=== PATIENT | male | born 1945 | race Caucasian/White ===

== ENCOUNTER 2016-12-05 10:46 | Inpatient (IN) | payer MEDICARE, BC ==
[2016-12-05] MEDS ORDERED: Sodium Chloride 0.9% 10 ML Syringe FLUSH PRN (11:28)
[2016-12-05] MEDS ORDERED: Lactated Ringers 1,000 ML IV SCH (11:30)
[2016-12-05] MEDS ORDERED: cefTRIAXone 1 GM in Sodium Chloride 0.9% 50 ML IV SCH (11:30)
[2016-12-05] MEDS ORDERED: Ibuprofen 600 MG Tab PO ONE (11:30)
[2016-12-05] MEDS ORDERED: Azithromycin 500 MG in Sodium Chloride 0.9% 250 ML IV SCH (11:30)
--- NOTE | 2016-12-05 11:32 | EDM.PDOC ---
ED HPI GENERAL MEDICAL PROBLEM - General Chief Complaint: Respiratory Problem Stated Complaint: FROM CLINIC Time Seen by Provider: 12/05/16 11:21 Source of Information: Reports: Patient, Family, RN Notes Reviewed History Limitations: Reports: No Limitations - History of Present Illness INITIAL COMMENTS - FREE TEXT/NARRATIVE: 71-year-old gentleman presents emergency department day with complaint of shortness of breath and fever, he states he's been ill for about a week is progressively getting worse she now has chills he has had some difficulty as he recently underwent TURP procedure with complication of bladder perforation had completed a course of Bactrim about 2 weeks prior for suspected urinary tract infection lEFT LUNG Pain Score (Numeric/FACES): 2 - Related Data Allergies Allergy/AdvReac Type Severity Reaction Status Date / Time codeine Allergy Abdominal Verified 12/05/16 11:01 Pain Iodinated Contrast- Oral and Allergy Hypotension Verified 12/05/16 11:01 IV Dye morphine Allergy Abdominal Verified 12/05/16 11:01 Pain Home Meds: Home Meds Albuterol Sulfate [Ventolin Hfa] 2 puff IH ASDIRECTED PRN 12/05/16 [History] Hydrocortisone [Cortef] 10 mg PO DAILY 12/05/16 [History] Past Medical History Cardiovascular History: Reports: Heart Failure Respiratory History: Reports: COPD, Pneumonia, Recurrent, Other (See Below) Other Respiratory History: PRN oxygen Gastrointestinal History: Reports: Cholelithiasis, GERD, GI Bleed Genitourinary History: Reports: BPH Musculoskeletal History: Reports: Back Pain, Chronic, Fracture, Other (See Below ) Other Musculoskeletal History: L-5 herniated disc - Infectious Disease History Infectious Disease History: Reports: CGR-[id number]-Dxwwulmra Enterobacteriaceae , Mumps - Past Surgical History HEENT Surgical History: Reports: Eye Surgery, LASIK GI Surgical History: Reports: Appendectomy, Cholecystectomy, Hernia, Inguinal, Other (See Below) Other GI Surgeries/Procedures: patial stomach removal due to gi bleed Male Surgical History: Reports: TURP-Transurethral Resection of Prostate 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 Musculoskeletal Surgical History: Reports: Other (See Below) Other Musculoskeletal Surgeries/Procedures:: Left arm surgery for nerve damage prakash 5 Social & Family History - Tobacco Use Smoking Status *Q: Former Smoker Used Tobacco, but Quit: Yes Month Tobacco Last Used: 8.5 years ago Second Hand Smoke Exposure: No - Caffeine Use Caffeine Use: Reports: Coffee - Alcohol Use Days Per Week of Alcohol Use: 0 - Recreational Drug Use Recreational Drug Use: No ED ROS GENERAL - Review of Systems Review Of Systems: See Below Constitutional: Reports: Fever, Chills HEENT: Reports: No Symptoms Respiratory: Reports: Shortness of Breath, Cough, Sputum Cardiovascular: Reports: Dyspnea on Exertion GI/Abdominal: Reports: No Symptoms : Reports: No Symptoms Musculoskeletal: Reports: No Symptoms Skin: Reports: No Symptoms Neurological: Reports: No Symptoms ED EXAM, GENERAL - Physical Exam Exam: See Below Free Text/Narrative:: General: Male, mild discomfort secondary to chills, alert and oriented x3 HEENT: head is atraumatic normocephalic, eyes pupils equal round reactive to light, sclera clear no conjunctivitis appreciated. Ears tympanic membranes clear and hutson landmarks and light reflex are present bilaterally canals are clear. Nose no septal deviation, nares are clear, no blood present. Mouth mucosa is dry and pink no erythema or exudate noted in soft palate, tongue is midline uvula is midline, dentition is intact. Neck: Supple no thyromegaly no tracheal deviation. Nodes: Cervical nodes subclavicular nodes nontender no palpable lymphadenopathy noted. Lungs: clear to auscultation bilaterally with symmetrical respirations, no adventitious noise appreciated. CV: Regular rate and rhythm S1 and S2 appreciated no murmurs rubs or gallops noted. Abdomen: Soft, nontender, no palpable masses or organomegaly appreciated, no distention no guarding bowel sounds are present, . Neuro: Cranial nerves II through XII grossly intact Skin: Warm and dry, intact Extremities: No lower extremity edema appreciated, Course - Vital Signs Last Recorded V/S: Last Vital Signs Temp 101.7 F H 12/05/16 12:10 Pulse 93 12/05/16 11:18 Resp 36 H 12/05/16 11:18 BP 130/74 12/05/16 10:53 Pulse Ox 89 L 12/05/16 11:18 - Orders/Labs/Meds Orders: Active Orders 24 hr Category Date Time Status EKG Documentation Completion [RC] ASDIRECTED Care 12/05/16 11:29 Active Peripheral IV Care [RC] . DIRECTED Care 12/05/16 11:29 Active Vital Signs [RC] Q1H Care 12/05/16 11:26 Active CULTURE BLOOD [BC] Urgent Lab 12/05/16 11:43 Received CULTURE BLOOD [BC] Urgent Lab 12/05/16 11:43 Received CULTURE RESPIRATORY + SMEAR [RM] Urgent Lab 12/05/16 11:28 Uncollected INFLUENZA A+B AG SCREEN [RM] Urgent Lab 12/05/16 12:33 Ordered UA W/MICROSCOPIC [URIN] Urgent Lab 12/05/16 11:26 Uncollected Azithromycin [Zithromax] 500 mg Med 12/05/16 11:30 Active Sodium Chloride 0.9% [Normal Saline] 250 ml IV Q24H Lactated Ringers [Ringers, Lactated] 1,000 ml Med 12/05/16 11:30 Active IV ASDIRECTED Sodium Chloride 0.9% [Saline Flush] Med 12/05/16 11:28 Active 10 ml FLUSH ASDIRECTED PRN cefTRIAXone [Rocephin] 1 gm Med 12/05/16 11:30 Active Sodium Chloride 0.9% [Normal Saline] 50 ml IV Q24H Blood Culture x2 Reflex Set [OM.PC] Urgent Oth 12/05/16 11:26 Ordered Peripheral IV Insertion Adult [OM.PC] Urgent Oth 12/05/16 11:28 Ordered EKG 12 Lead [EK] Urgent Ther 12/05/16 11:28 Ordered Medication Orders Azithromycin 500 mg/ Sodium (Chloride) 250 mls @ 250 mls/hr IV Q24H [facility] Last Admin: 12/05/16 12:18 Dose: 250 mls/hr Ceftriaxone Sodium 1 gm/ (Sodium Chloride) 50 mls @ 100 mls/hr IV Q24H [facility] Lactated Ringer's (Ringers, Lactated) 1,000 mls @ 500 mls/hr IV ASDIRECTED ESVIN Last Admin: 12/05/16 12:19 Dose: 500 mls/hr Sodium Chloride (Saline Flush) 10 ml FLUSH ASDIRECTED PRN PRN Reason: Keep Vein Open Labs: Laboratory Tests 12/05/16 12/05/16 12/05/16 Range/Units 11:26 11:43 11:43 WBC 12.3 H (4.5-11.0) K/uL RBC 5.06 (4.30-5.90) M/uL Hgb 11.5 L (12.0-15.0) g/dL Hct 37.9 L (40.0-54.0) % MCV 75 L (80-98) fL MCH 23 L (27-31) pg MCHC 30 L (32-36) % Plt Count 308 (150-400) K/uL Neut % (Auto) 84 H (36-66) % Lymph % (Auto) 7 L (24-44) % Meigs % (Auto) 9 H (2-6) % Eos % (Auto) 0 L (2-4) % Baso % (Auto) 0 (0-1) % Sodium 138 L (140-148) mmol/L Potassium 4.5 (3.6-5.2) mmol/L Chloride 103 (100-108) mmol/L Carbon Dioxide 23 (21-32) mmol/L Anion Gap 16.5 H (5.0-14.0) mmol/L BUN 23 H (7-18) mg/dL Creatinine 1.3 (0.8-1.3) mg/dL Est Cr Clr Drug Dosing 50.61 mL/min Estimated GFR (MDRD) 54 L (>60) Glucose 180 H (74-106) mg/dL Lactic Acid 2.6 H (0.4-2.0) mmol/L Calcium 8.4 L (8.5-10.1) mg/dL Total Bilirubin 0.7 (0.2-1.0) mg/dL AST 18 (15-37) U/L ALT 18 (12-78) U/L Alkaline Phosphatase 75 (46-116) U/L Troponin I (0.000-0.056) ng/mL C-Reactive Protein 5.21 H (0.0-0.3) mg/dL NT-Pro-B Natriuret Pep (5-125) pg/mL Total Protein 6.6 (6.4-8.2) g/dL Albumin 3.1 L (3.4-5.0) g/dL Globulin 3.5 (2.3-3.5) g/dL Albumin/Globulin Ratio 0.9 L (1.2-2.2) 12/05/16 12/05/16 Range/Units 11:43 11:43 WBC (4.5-11.0) K/uL RBC (4.30-5.90) M/uL Hgb (12.0-15.0) g/dL Hct (40.0-54.0) % MCV (80-98) fL MCH (27-31) pg MCHC (32-36) % Plt Count (150-400) K/uL Neut % (Auto) (36-66) % Lymph % (Auto) (24-44) % Meigs % (Auto) (2-6) % Eos % (Auto) (2-4) % Baso % (Auto) (0-1) % Sodium (140-148) mmol/L Potassium (3.6-5.2) mmol/L Chloride (100-108) mmol/L Carbon Dioxide (21-32) mmol/L Anion Gap (5.0-14.0) mmol/L BUN (7-18) mg/dL Creatinine (0.8-1.3) mg/dL Est Cr Clr Drug Dosing mL/min Estimated GFR (MDRD) (>60) Glucose (74-106) mg/dL Lactic Acid (0.4-2.0) mmol/L Calcium (8.5-10.1) mg/dL Total Bilirubin (0.2-1.0) mg/dL AST (15-37) U/L ALT (12-78) U/L Alkaline Phosphatase (46-116) U/L Troponin I < 0.017 (0.000-0.056) ng/mL C-Reactive Protein (0.0-0.3) mg/dL NT-Pro-B Natriuret Pep 133 H (5-125) pg/mL Total Protein (6.4-8.2) g/dL Albumin (3.4-5.0) g/dL Globulin (2.3-3.5) g/dL Albumin/Globulin Ratio (1.2-2.2) Meds: Medications Generic Name Dose Route Start Last Admin Trade Name Freq PRN Reason Stop Dose Admin Azithromycin 500 mg/ Sodium 250 mls @ 250 mls/hr 12/05/16 11:30 12/05/16 12: 18 Chloride IV 250 mls/hr Q24H ESVIN Administration Ceftriaxone Sodium 1 gm/ 50 mls @ 100 mls/hr 12/05/16 11:30 Sodium Chloride IV Q24H ESVIN Lactated Ringer's 1,000 mls @ 500 mls/hr 12/05/16 11:30 12/05/16 12:19 Ringers, Lactated IV 500 mls/hr ASDIRECTED ESVIN Administration Sodium Chloride 10 ml 12/05/16 11:28 Saline Flush FLUSH ASDIRECTED PRN Keep Vein Open Discontinued Medications Generic Name Dose Route Start Last Admin Trade Name Freq PRN Reason Stop Dose Admin Ibuprofen 600 mg 12/05/16 11:30 12/05/16 12:10 Motrin PO 12/05/16 11:31 600 mg ONETIME ONE Administration Departure - Departure Time of Disposition: 12:39 Disposition: Admitted As Inpatient 64 Condition: Good Clinical Impression: Community acquired pneumonia Qualifiers: Laterality: right Lung location: lower lobe of lung Qualified Code(s): J18.1 - Lobar pneumonia, unspecified organism - Discharge Information Referrals: Edy Vicente MD [Primary Care Provider] - Forms: ED Department Discharge - My Orders Last 24 Hours: My Active Orders 12/05/16 11:26 Vital Signs [RC] Q1H UA W/MICROSCOPIC [URIN] Urgent Blood Culture x2 Reflex Set [OM.PC] Urgent 12/05/16 11:28 CULTURE RESPIRATORY + SMEAR [RM] Urgent Sodium Chloride 0.9% [Saline Flush] 10 ml FLUSH ASDIRECTED PRN Peripheral IV Insertion Adult [OM.PC] Urgent EKG 12 Lead [EK] Urgent 12/05/16 11:29 EKG Documentation Completion [RC] ASDIRECTED Peripheral IV Care [RC] . DIRECTED 12/05/16 11:30 Azithromycin [Zithromax] 500 mg Sodium Chloride 0.9% [Normal Saline] 250 ml IV Q24H Lactated Ringers [Ringers, Lactated] 1,000 ml IV ASDIRECTED cefTRIAXone [Rocephin] 1 gm Sodium Chloride 0.9% [Normal Saline] 50 ml IV Q24H 12/05/16 11:43 CULTURE BLOOD [BC] Urgent CULTURE BLOOD [BC] Urgent 12/05/16 12:33 INFLUENZA A+B AG SCREEN [RM] Urgent - Assessment/Plan Last 24 Hours: My Active Orders 12/05/16 11:26 Vital Signs [RC] Q1H UA W/MICROSCOPIC [URIN] Urgent Blood Culture x2 Reflex Set [OM.PC] Urgent 12/05/16 11:28 CULTURE RESPIRATORY + SMEAR [RM] Urgent Sodium Chloride 0.9% [Saline Flush] 10 ml FLUSH ASDIRECTED PRN Peripheral IV Insertion Adult [OM.PC] Urgent EKG 12 Lead [EK] Urgent 12/05/16 11:29 EKG Documentation Completion [RC] ASDIRECTED Peripheral IV Care [RC] . DIRECTED 12/05/16 11:30 Azithromycin [Zithromax] 500 mg Sodium Chloride 0.9% [Normal Saline] 250 ml IV Q24H Lactated Ringers [Ringers, Lactated] 1,000 ml IV ASDIRECTED cefTRIAXone [Rocephin] 1 gm Sodium Chloride 0.9% [Normal Saline] 50 ml IV Q24H 12/05/16 11:43 CULTURE BLOOD [BC] Urgent CULTURE BLOOD [BC] Urgent 12/05/16 12:33 INFLUENZA A+B AG SCREEN [RM] Urgent Plan: Assessment Acuity = acute Site and laterality = community acquired pneumonia right base, [place] patient with known history of COPD and history of congestive heart failure Etiology = probable bacterial cause Manifestations = fever, dyspnea Location of injury = Home Lab values = WBC elevated at 12.3 consistent with leukocytosis, hemoglobin low 11.5 consistent with microchromic anemia lactic acid elevated at 2.6 consistent lactic acidosis CRP elevated at 5.2 BNP normal at 133 chest x-ray shows infiltrate right base EKG demonstrates a sinus rhythm with left axis deviation and left anterior fascicular block Plan Discussed case with hospitalist business operations manager he agreed to come and evaluate the patient in the emergency department for admission, blood cultures are drawn and pending influenza is pending initiation of antibiotics of azithromycin and Rocephin initiated in the emergency department Patient was in agreement with the plan all questions were answered, This note was dictated using [employer] voice recognition software please call with any questions.
--- NOTE | 2016-12-05 11:59 | CR ---
Chest 2V HISTORY: Fever, shortness of breath. COMPARISON: None FINDINGS: Patchy infiltrate right lung base. The mid and upper lung zones are clear. Cardiac size is normal no acute congestive change. Impression: Right lung base infiltrate.
--- NOTE | 2016-12-05 14:18 | PCM.HP ---
H&P History of Present Illness - General Date of Service: 12/05/16 Admit Problem/Dx: Admission Diagnosis/Problem Admission Diagnosis/Problem Pneumonia Source of Information: Patient, Family, Provider History Limitations: Reports: No Limitations - History of Present Illness Initial Comments - Free Text/Narative: Manas presented to the emergency room with cough and shortness of breath. He has had a cough for approximately one week but it has been worse the past couple of days. Last night he developed a fever greater than 101 at home and had increasing shortness of breath. He checked his pulse and oxygen this morning and his pulse was greater than 100 and his oxygen was only 84%. He did use his supplemental oxygen last night but had not required prior to that time. He has no appetite and has no energy. He has some pleuritic sounding pain in the left lower chest. He has nausea vomiting for the past 12 hours or so and has not been able to keep anything down. No obvious sick contacts and no travel. He was treated with antibiotics approximately 2 weeks ago for a suspected urinary tract infection. He does note some dysuria but has not noticed a change in the color or odor of his urine. Does note that he has a JJ stent in place and is due to have it removed. Workup in the emergency room revealed borderline hypoxia as well as a significant fever. Chest x-ray suggested right lower lobe pneumonia. Urine sample also possibly suggestive of infection. He has received antibiotics and some IV fluids and will be admitted for further management. lEFT LUNG Pain Score (Numeric/FACES): 2 - Related Data Allergies/Adverse Reactions: Allergies Allergy/AdvReac Type Severity Reaction Status Date / Time Iodinated Contrast- Oral and Allergy Hypotension Verified 12/05/16 11:01 IV Dye codeine AdvReac Abdominal Verified 12/05/16 15:06 Pain morphine AdvReac Abdominal Verified 12/05/16 15:06 Pain Home Medications: Home Meds Albuterol Sulfate [Ventolin Hfa] 2 puff IH ASDIRECTED PRN 12/05/16 [History] Hydrocortisone [Cortef] 10 mg PO DAILY 12/05/16 [History] Past Medical History Cardiovascular History: Reports: Heart Failure Respiratory History: Reports: COPD, Pneumonia, Recurrent, Other (See Below) Other Respiratory History: PRN oxygen Gastrointestinal History: Reports: Cholelithiasis, GERD, GI Bleed Genitourinary History: Reports: BPH Musculoskeletal History: Reports: Back Pain, Chronic, Fracture, Other (See Below ) Other Musculoskeletal History: L-5 herniated disc - Infectious Disease History Infectious Disease History: Reports: DFH-Opwbcxhohb-Tdtjekani Enterobacteriaceae , Mumps - Past Surgical History HEENT Surgical History: Reports: Eye Surgery, LASIK GI Surgical History: Reports: Appendectomy, Cholecystectomy, Hernia, Inguinal, Other (See Below) Other GI Surgeries/Procedures: patial stomach removal due to gi bleed Male Surgical History: Reports: TURP-Transurethral Resection of Prostate 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 Musculoskeletal Surgical History: Reports: Other (See Below) Other Musculoskeletal Surgeries/Procedures:: Left arm surgery for nerve damage prakash 5 Social & Family History - Family History Cardiac: Denies: CAD - Tobacco Use Smoking Status *Q: Former Smoker Used Tobacco, but Quit: Yes Month Tobacco Last Used: 8.5 years ago Second Hand Smoke Exposure: No - Caffeine Use Caffeine Use: Reports: Coffee - Alcohol Use Days Per Week of Alcohol Use: 0 - Recreational Drug Use Recreational Drug Use: No H&P Review of Systems - Review of Systems: Review Of Systems: See Below Free Text/Narrative: A complete 12 point review of systems was obtained. Pertinent positives and negatives are noted in the history of present illness. All other systems were reviewed and were negative except as noted. Exam - Exam Exam: See Below - Vital Signs Vital Signs: Last Vital Signs Temp 38.4 C H 12/05/16 13:26 Pulse 85 12/05/16 13:26 Resp 32 H 12/05/16 13:26 BP 137/59 L 12/05/16 13:26 Pulse Ox 89 L 12/05/16 13:26 Weight: 86 kg - Exam Quality Assessment: No: Supplemental Oxygen General: Alert, Oriented, Cooperative. No: Mild Distress HEENT: Conjunctiva Clear. No: Mucosa Moist & [place] (dry), Scleral Icterus Neck: Supple, Trachea Midline. No: Lymphadenopathy Lungs: Normal Respiratory Effort, Rales (right lung base). No: Wheezing Cardiovascular: Regular Rate, Regular Rhythm. No: Systolic Murmur GI/Abdominal Exam: Normal Bowel Sounds, Soft, Non-Tender, No Distention Back Exam: Normal Inspection, Full Range of Motion Extremities: No Pedal Edema. No: Increased Warmth Skin: Warm, Dry Neuro Extensive - Mental Status: Alert, Oriented x3, Nl Response to Commands Neuro Extensive - Motor, Sensory, Reflexes: CN II-XII Intact. No: Dysarthria, Abnormal Motor, Tremor Psychiatric: Alert, Normal Affect - Patient Data Lab Results Last 24 hrs: Laboratory Results - last 24 hr 12/05/16 12/05/16 12/05/16 Range/Units 11:26 11:43 11:43 WBC 12.3 H (4.5-11.0) K/uL RBC 5.06 (4.30-5.90) M/uL Hgb 11.5 L (12.0-15.0) g/dL Hct 37.9 L (40.0-54.0) % MCV 75 L (80-98) fL MCH 23 L (27-31) pg MCHC 30 L (32-36) % Plt Count 308 (150-400) K/uL Neut % (Auto) 84 H (36-66) % Lymph % (Auto) 7 L (24-44) % [place]yler % (Auto) 9 H (2-6) % Eos % (Auto) 0 L (2-4) % Baso % (Auto) 0 (0-1) % Sodium 138 L (140-148) mmol/L Potassium 4.5 (3.6-5.2) mmol/L Chloride 103 (100-108) mmol/L Carbon Dioxide 23 (21-32) mmol/L Anion Gap 16.5 H (5.0-14.0) mmol/L BUN 23 H (7-18) mg/dL Creatinine 1.3 (0.8-1.3) mg/dL Est Cr Clr Drug Dosing 50.61 mL/min Estimated GFR (MDRD) 54 L (>60) Glucose 180 H (74-106) mg/dL Lactic Acid 2.6 H (0.4-2.0) mmol/L Calcium 8.4 L (8.5-10.1) mg/dL Total Bilirubin 0.7 (0.2-1.0) mg/dL AST 18 (15-37) U/L ALT 18 (12-78) U/L Alkaline Phosphatase 75 (46-116) U/L Troponin I (0.000-0.056) ng/mL C-Reactive Protein 5.21 H (0.0-0.3) mg/dL NT-Pro-B Natriuret Pep (5-125) pg/mL Total Protein 6.6 (6.4-8.2) g/dL Albumin 3.1 L (3.4-5.0) g/dL Globulin 3.5 (2.3-3.5) g/dL Albumin/Globulin Ratio 0.9 L (1.2-2.2) Urine Color Urine Appearance Urine pH (4.5-8.0) Ur Specific [place] (1.008-1.030) Urine Protein (NEGATIVE) mg/dL Urine Glucose (UA) (NEGATIVE) mg/dL Urine Ketones (NEGATIVE) mg/dL Urine Occult Blood (NEGATIVE) Urine Nitrite (NEGAITVE) Urine Bilirubin (NEGATIVE) Urine Urobilinogen (NORMAL) mg/dL Ur Leukocyte Esterase (NEGATIVE) Urine RBC (0-5) Urine WBC (0-5) Ur Epithelial Cells Amorphous Sediment Urine Bacteria Urine Mucus 12/05/16 12/05/16 12/05/16 Range/Units 11:43 11:43 12:44 WBC (4.5-11.0) K/uL RBC (4.30-5.90) M/uL Hgb (12.0-15.0) g/dL Hct (40.0-54.0) % MCV (80-98) fL MCH (27-31) pg MCHC (32-36) % Plt Count (150-400) K/uL Neut % (Auto) (36-66) % Lymph % (Auto) (24-44) % [place] % (Auto) (2-6) % Eos % (Auto) (2-4) % Baso % (Auto) (0-1) % Sodium (140-148) mmol/L Potassium (3.6-5.2) mmol/L Chloride (100-108) mmol/L Carbon Dioxide (21-32) mmol/L Anion Gap (5.0-14.0) mmol/L BUN (7-18) mg/dL Creatinine (0.8-1.3) mg/dL Est Cr Clr Drug Dosing mL/min Estimated GFR (MDRD) (>60) Glucose (74-106) mg/dL Lactic Acid (0.4-2.0) mmol/L Calcium (8.5-10.1) mg/dL Total Bilirubin (0.2-1.0) mg/dL AST (15-37) U/L ALT (12-78) U/L Alkaline Phosphatase (46-116) U/L Troponin I < 0.017 (0.000-0.056) ng/mL C-Reactive Protein (0.0-0.3) mg/dL NT-Pro-B Natriuret Pep 133 H (5-125) pg/mL Total Protein (6.4-8.2) g/dL Albumin (3.4-5.0) g/dL Globulin (2.3-3.5) g/dL Albumin/Globulin Ratio (1.2-2.2) Urine Color Brown Urine Appearance Turbid Urine pH 5.0 (4.5-8.0) Ur Specific [place] 1.020 (1.008-1.030) Urine Protein 500 H (NEGATIVE) mg/dL Urine Glucose (UA) Normal (NEGATIVE) mg/dL Urine Ketones Negative (NEGATIVE) mg/dL Urine Occult Blood Large (NEGATIVE) Urine Nitrite Negative (NEGAITVE) Urine Bilirubin Small (NEGATIVE) Urine Urobilinogen Normal (NORMAL) mg/dL Ur Leukocyte Esterase Large (NEGATIVE) Urine RBC Packed H (0-5) Urine WBC Packed H (0-5) Ur Epithelial Cells Not seen Amorphous Sediment Not seen Urine Bacteria Many Urine Mucus Not seen Result Diagrams: 12/05/16 11:26 12/05/16 11:43 [place] Results Last 24 hrs: Microbiology 12/05/16 12:33 Influenza Type A Antigen Screen - Final Nasopharyngeal Swab - Nare, Unspecified NEGATIVE INFLUENZA A VIRUS AG Influenza Type B Antigen Screen - Final NEGATIVE INFLUENZA B VIRUS AG Imaging Impressions Last 24 hrs: CXR - images personally reviewed - the heart size is normal. no effusion. Right lower lung infiltrate, patchy. No mass. EKG INTERPRETATION EKG Date: 12/05/16 Rhythm: NSR [place]: Normal P-Wave: Present QRS: Other (LAFB) ST-T: Normal QT: Normal EKG Interpretation Comments: images personally reviewed *Q Meaningful Use (ADM) - VTE *Q VTE Criteria *Q: - VTE Risk Assess *Q Each Risk Factor Represents 1 Point: Congestive Heart Failure, Less than 1 Month , Abnormal Pulmonary Function (COPD) Total Score 1 Point Risk Factors: 2 Each Risk Factor Represents 2 Points: Age 60 - 74 Years Total Score 2 Point Risk Factors: 2 Each Risk Factor Represents 3 Points: None Total Score 3 Point Risk Factors: 0 Each Risk Factor Represents 5 Points: None Total Score 5 Point Risk Factors: 0 Venous Thromboembolism Risk Factor Score *Q: 4 - Stroke *Q Stroke Criteria *Q: - AMI *Q AMI Criteria *Q: - Problem List (1) Community acquired pneumonia SNOMED Code(s): 598045134 ICD Code: J18.9 - PNEUMONIA, UNSPECIFIED ORGANISM Status: Suspected Current Visit: Yes Qualifiers: Laterality: right Lung location: lower lobe of lung Qualified Code(s): J18.1 - Lobar pneumonia, unspecified organism (2) Complicated UTI (urinary tract infection) SNOMED Code(s): 35210468 ICD Code: N39.0 - URINARY TRACT INFECTION, SITE NOT SPECIFIED Status: Acute Current Visit: Yes Problem List Initiated/Reviewed/Updated: Yes Orders Last 24hrs: Active Orders 24 hr Category Date Time Status Patient Status Manage Transfer [TRANSFER] Routine ADT 12/05/16 14:06 Ordered EKG Documentation Completion [RC] ASDIRECTED Care 12/05/16 11:29 Active Peripheral IV Care [RC] . DIRECTED Care 12/05/16 11:29 Active Vital Signs [RC] Q1H Care 12/05/16 11:26 Active CULTURE BLOOD [BC] Urgent Lab 12/05/16 11:43 Received CULTURE BLOOD [BC] Urgent Lab 12/05/16 11:43 Received CULTURE RESPIRATORY + SMEAR [RM] Urgent Lab 12/05/16 11:28 Uncollected CULTURE URINE [RM] Routine Lab 12/05/16 13:54 Received Azithromycin [Zithromax] 500 mg Med 12/05/16 11:30 Active Sodium Chloride 0.9% [Normal Saline] 250 ml IV Q24H Lactated Ringers [Ringers, Lactated] 1,000 ml Med 12/05/16 11:30 Active IV ASDIRECTED Sodium Chloride 0.9% [Saline Flush] Med 12/05/16 11:28 Active 10 ml FLUSH ASDIRECTED PRN cefTRIAXone [Rocephin] 1 gm Med 12/05/16 11:30 Active Sodium Chloride 0.9% [Normal Saline] 50 ml IV Q24H Blood Culture x2 Reflex Set [OM.PC] Urgent Oth 12/05/16 11:26 Ordered Peripheral IV Insertion Adult [OM.PC] Urgent Oth 12/05/16 11:28 Ordered Resuscitation Status Routine Resus Stat 12/05/16 14:08 Ordered EKG 12 Lead [EK] Urgent Ther 12/05/16 11:28 Ordered Medication Orders Azithromycin 500 mg/ Sodium (Chloride) 250 mls @ 250 mls/hr IV Q24H [facility] Last Admin: 12/05/16 12:18 Dose: 250 mls/hr Ceftriaxone Sodium 1 gm/ (Sodium Chloride) 50 mls @ 100 mls/hr IV Q24H [facility] Last Admin: 12/05/16 13:27 Dose: 100 mls/hr Lactated Ringer's (Ringers, Lactated) 1,000 mls @ 500 mls/hr IV ASDIRECTED [facility] Last Admin: 12/05/16 12:19 Dose: 500 mls/hr Sodium Chloride (Saline Flush) 10 ml FLUSH ASDIRECTED PRN PRN Reason: Keep Vein Open Assessment/Plan Comment:: Assessment and Plan - Community acquired pneumonia - borderline hypoxia with right lower lobe infiltrate. Borderline evidence for sepsis but improved with some fluids in the emergency room. With the borderline hypoxia and high fever I think he would benefit from inpatient management. He is very short of breath with any activity. Cultures have been obtained. -Ceftriaxone and azithromycin -Follow-up cultures -Supplement oxygen as needed -Nebulizers Possible complicated urinary tract infection - recent TURP with complications. Some symptoms to suggest infection and urine sample strongly suggestive of infection. Still has JJ stent in place and is due to have this removed. -Antibiotics as above -Follow-up urine culture Maintenance issues - - DVT prophylaxis - mechanical - GI prophylaxis - not indicated - Nutrition - clear liquids, advance as tolerated - Nicole catheter - not indicated CODE STATUS - DNR/DNI Admission justification - This patient will be admitted for inpatient services and is medically appropriate meeting medical necessity for inpatient admission as outlined in my documentation. I reasonably expect the patient will require inpatient services that span a period time over 2 midnights. I reasonably expect this patient to be discharged or transferred within 96 hours [facility]. Disposition - anticipate discharge to home after the hospital stay Primary care physician - Dr Jules Grissom M.D.
[2016-12-05] MEDS ORDERED: Ibuprofen 600 MG Tab PO PRN (15:04)
[2016-12-05] MEDS ORDERED: Polyethylene Glycol 3350 Powder 17 GM Packet PO PRN (15:04)
[2016-12-05] MEDS ORDERED: Ondansetron 4 MG Tab.DIS PO PRN (15:04)
[2016-12-05] MEDS ORDERED: Albuterol 0.083% 2.5 MG/3 ML Neb Soln NEB PRN (15:04)
[2016-12-05] MEDS ORDERED: Benzonatate 100 MG Cap PO PRN (15:04)
[2016-12-05] MEDS ORDERED: Ondansetron 4 MG/2 ML SDV IV PRN (15:04)
[2016-12-05] MEDS: Acetaminophen 325 MG Tab PO PRN ×2 (15:30→23:45)
[2016-12-05] MEDS: Albuterol/Ipratropium 3.0-0.5 MG/3 ML Neb Soln NEB SCH ×2 (16:43→20:40)
[2016-12-05] MEDS: Sodium Chloride 0.9% 1,000 ML IV SCH (23:24)
[2016-12-05] MEDS: diphenhydrAMINE 25 MG Cap PO PRN (23:45)
[2016-12-06] MEDS: Sodium Chloride 0.9% 1,000 ML IV SCH ×2 (07:18→18:03)
[2016-12-06] MEDS: Albuterol/Ipratropium 3.0-0.5 MG/3 ML Neb Soln NEB SCH ×4 (07:30→20:54)
[2016-12-06] MEDS: Hydrocortisone 10 MG Tab PO SCH (08:22)
[2016-12-06] MEDS: cefTRIAXone 2 GM in Sodium Chloride 0.9% 50 ML IV SCH (08:31)
--- NOTE | 2016-12-06 09:16 | PCM.PN ---
- General Info Date of Service: 12/06/16 Functional Status: Reports: Pain Controlled, Tolerating Diet - Review of Systems General: Reports: Weakness Pulmonary: Reports: Shortness of Breath, Cough Systems Review Comment:: No acute events overnight other than some difficulty sleeping. Feels a little better today but still feels weak and fatigued. Moderate cough but not much in the way of sputum production. No significant chest pain at this time. Mild shortness of breath but was able to get up and walk around without oxygen. Intermittently requires supplemental oxygen. Sputum culture pending and Gram stain revealed a gram-positive cocci. He has not had any fevers. Heart rate has normalized. - Patient Data Vitals - Most Recent: Last Vital Signs Temp 36.6 C 12/06/16 07:24 Pulse 67 12/06/16 07:42 Resp 20 12/06/16 07:24 BP 101/53 L 12/06/16 07:24 Pulse Ox 95 12/06/16 07:31 Weight - Most Recent: 86 kg I&O - Last 24 Hours: Intake & Output 12/05/16 12/06/16 12/06/16 22:59 06:59 14:59 Intake Total 1086 700 Output Total 500 300 625 Balance 586 -300 75 Lab Results Last 24 Hours: Laboratory Results - last 24 hr 12/06/16 12/06/16 Range/Units 05:25 05:25 WBC 11.3 H (4.5-11.0) K/uL RBC 4.02 L (4.30-5.90) M/uL Hgb 9.2 L D (12.0-15.0) g/dL Hct 30.4 L (40.0-54.0) % MCV 76 L (80-98) fL MCH 23 L (27-31) pg MCHC 30 L (32-36) % Plt Count 256 (150-400) K/uL Sodium 141 (140-148) mmol/L Potassium 4.2 (3.6-5.2) mmol/L Chloride 109 H (100-108) mmol/L Carbon Dioxide 23 (21-32) mmol/L Anion Gap 13.2 (5.0-14.0) mmol/L BUN 16 (7-18) mg/dL Creatinine 1.1 (0.8-1.3) mg/dL Est Cr Clr Drug Dosing 59.81 mL/min Estimated GFR (MDRD) > 60 (>60) Glucose 111 H (74-106) mg/dL Calcium 7.6 L (8.5-10.1) mg/dL [place] Results Last 24 Hours: Microbiology 12/05/16 14:21 Gram Stain - Final Sputum - Expectorated Respiratory Culture - Preliminary Med Orders - Current: Current Medications Acetaminophen (Tylenol) 650 mg PO Q4H PRN PRN Reason: Pain (Mild 1-3)/fever Last Admin: 12/05/16 23:45 Dose: 650 mg Albuterol (Proventil Neb Soln) 2.5 mg NEB Q4H PRN PRN Reason: Shortness Of Breath/wheezing Albuterol/Ipratropium (Duoneb 3.0-0.5 Mg/3 Ml) 3 ml NEB QIDRT [facility] Last Admin: 12/06/16 07:30 Dose: 3 ml Benzonatate (Tessalon Perles) 100 mg PO TID PRN PRN Reason: Cough Diphenhydramine HCl (Benadryl) 25 mg PO BEDTIME PRN PRN Reason: Insomnia Last Admin: 12/05/16 23:45 Dose: 25 mg Guaifenesin/Dextromethorphan (Robitussin Dm) 10 ml PO Q4H PRN PRN Reason: Cough Hydrocortisone (Cortef) 10 mg PO DAILY [facility] Last Admin: 12/06/16 08:22 Dose: 10 mg Ceftriaxone Sodium 2 gm/ (Sodium Chloride) 50 mls @ 100 mls/hr IV Q24H [facility] Last Admin: 12/06/16 08:31 Dose: 100 mls/hr Azithromycin 500 mg/ Sodium (Chloride) 250 mls @ 250 mls/hr IV Q24H [facility] Ibuprofen (Motrin) 600 mg PO Q6H PRN PRN Reason: Pain/Fever Ondansetron HCl (Zofran Odt) 4 mg PO Q6H PRN PRN Reason: Nausea able to take PO Ondansetron HCl (Zofran) 4 mg IV Q6H PRN PRN Reason: Nausea/Vomiting Polyethylene Glycol (Miralax) 17 gm PO DAILY PRN PRN Reason: Constipation Senna/Docusate Sodium (Senna Plus) 1 tab PO BID PRN PRN Reason: Constipation Sodium Chloride (Saline Flush) 10 ml FLUSH ASDIRECTED PRN PRN Reason: Keep Vein Open Discontinued Medications Azithromycin 500 mg/ Sodium (Chloride) 250 mls @ 250 mls/hr IV Q24H [facility] Last Admin: 12/05/16 12:18 Dose: 250 mls/hr Ceftriaxone Sodium 1 gm/ (Sodium Chloride) 50 mls @ 100 mls/hr IV Q24H [facility] Last Admin: 12/05/16 13:27 Dose: 100 mls/hr Lactated Ringer's (Ringers, Lactated) 1,000 mls @ 500 mls/hr IV ASDIRECTED [facility] Last Admin: 12/05/16 12:19 Dose: 500 mls/hr Sodium Chloride (Normal Saline) 1,000 mls @ 125 mls/hr IV ASDIRECTED [facility] Last Admin: 12/06/16 07:18 Dose: 125 mls/hr Ibuprofen (Motrin) 600 mg PO ONETIME ONE Stop: 12/05/16 11:31 Last Admin: 12/05/16 12:10 Dose: 600 mg - Exam Quality Assessment: Supplemental Oxygen General: Alert, Oriented, Cooperative, No Acute Distress Neck: Supple Lungs: Normal Respiratory Effort, Rales (right lung base). No: Wheezing Cardiovascular: Regular Rate, Regular Rhythm GI/Abdominal Exam: Normal Bowel Sounds, Soft, No Distention Extremities: No Pedal Edema. No: Increased Warmth Skin: Warm, Dry Psy/Mental Status: Alert, Normal Affect - Problem List & Annotations (1) Community acquired pneumonia SNOMED Code(s): 982982606 Code(s): J18.9 - PNEUMONIA, UNSPECIFIED ORGANISM Status: Suspected Current Visit: Yes Qualifiers: Laterality: right Lung location: lower lobe of lung Qualified Code(s): J18.1 - Lobar pneumonia, unspecified organism (2) Complicated UTI (urinary tract infection) SNOMED Code(s): 70527593 Code(s): N39.0 - URINARY TRACT INFECTION, SITE NOT SPECIFIED Status: Acute Current Visit: Yes - Problem List Review Problem List Initiated/Reviewed/Updated: Yes - My Orders Last 24 Hours: My Active Orders 12/05/16 14:08 Resuscitation Status Routine 12/05/16 15:04 Patient Status [ADT] Routine Intake and Output [RC] QSHIFT Notify Provider Vital Signs [RC] ASDIRECTED Oxygen Therapy [RC] PRN RT Aerosol Therapy [RC] ASDIRECTED Up ad Vivian [RC] ASDIRECTED VTE/DVT Education [RC] Per Unit Routine Vital Signs [RC] Q4H Acetaminophen [Tylenol] 650 mg PO Q4H PRN Albuterol [Proventil Neb Soln] 2.5 mg NEB Q4H PRN Benzonatate [Tessalon Perles] 100 mg PO TID PRN Dextromethorphan/guaiFENesin [Robitussin DM] 10 ml PO Q4H PRN Docusate Sodium/Sennosides [Senna Plus] 1 tab PO BID PRN Ibuprofen [Motrin] 600 mg PO Q6H PRN Ondansetron [Zofran ODT] 4 mg PO Q6H PRN Ondansetron [Zofran] 4 mg IV Q6H PRN Polyethylene Glycol 3350 [MiraLAX] 17 gm PO DAILY PRN Sodium Chloride 0.9% [Normal Saline] 1,000 ml IV ASDIRECTED RT Acapella [RESPCARE] Routine Sequential Compression Device [OM.PC] Per Unit Routine 12/05/16 16:00 Albuterol/Ipratropium [DuoNeb 3.0-0.5 MG/3 ML] 3 ml NEB QIDRT 12/05/16 23:29 diphenhydrAMINE [Benadryl] 25 mg PO BEDTIME PRN 12/06/16 09:00 cefTRIAXone [Rocephin] 2 gm Sodium Chloride 0.9% [Normal Saline] 50 ml IV Q24H 12/06/16 09:30 Sodium Chloride 0.9% [Normal Saline] 1,000 ml IV ASDIRECTED 12/06/16 Lunch Regular Diet [DIET] 12/07/16 05:00 BASIC METABOLIC PANEL,BMP [CHEM] Timed CBC W/O DIFF,HEMOGRAM [HEME] Timed (1) - Plan Plan:: Assessment and Plan - Community acquired pneumonia - borderline hypoxia with right lower lobe infiltrate. Clinically he looks a little better but does continue to intermittently require supplemental oxygen. Sputum Gram stain showed a gram- positive cocci but clinically is doing well with current antibiotics. -Ceftriaxone and azithromycin -Follow-up cultures -Supplement oxygen as needed -Nebulizers Possible complicated urinary tract infection - recent TURP with complications. Some symptoms to suggest infection and urine sample strongly suggestive of infection. Still has JJ stent in place and is due to have this removed. Urine culture still pending. -Antibiotics as above -Follow-up urine culture Maintenance issues - - DVT prophylaxis - mechanical - GI prophylaxis - not indicated - Nutrition - clear liquids, advance as tolerated Disposition - anticipate discharge to home after the hospital stay Miguel Grissom M.D.
[2016-12-06] MEDS ORDERED: Azithromycin 500 MG in Sodium Chloride 0.9% 250 ML IV SCH (11:00)
[2016-12-06] MEDS: Acetaminophen 325 MG Tab PO PRN (20:55)
[2016-12-06] MEDS: diphenhydrAMINE 25 MG Cap PO PRN (20:56)
[2016-12-06] MEDS: guaiFENesin/Dextromethorphan 100-10 MG/5 ML Soln 10 ML Cup PO PRN (21:05)
[2016-12-07] MEDS: guaiFENesin/Dextromethorphan 100-10 MG/5 ML Soln 10 ML Cup PO PRN ×2 (05:46→23:31)
[2016-12-07] MEDS: Albuterol/Ipratropium 3.0-0.5 MG/3 ML Neb Soln NEB SCH ×4 (07:17→21:24)
[2016-12-07] MEDS: cefTRIAXone 2 GM in Sodium Chloride 0.9% 50 ML IV SCH (08:45)
[2016-12-07] MEDS: Hydrocortisone 10 MG Tab PO SCH (08:46)
--- NOTE | 2016-12-07 10:22 | PCM.PN ---
- General Info Date of Service: 12/07/16 Functional Status: Reports: Pain Controlled - Review of Systems General: Reports: Weakness. Denies: Fever Pulmonary: Reports: Cough Systems Review Comment:: No acute events overnight. No fevers. Vital signs have been stable. Still has a loose but nonproductive cough. Feels weak and run down and has some mild myalgias. No complaints of chest pain or abdominal pain. Sputum cultures growing strep pneumoniae. - Patient Data Vitals - Most Recent: Last Vital Signs Temp 36.3 C 12/07/16 10:01 Pulse 57 L 12/07/16 10:01 Resp 20 12/07/16 10:01 BP 94/55 L 12/07/16 10:01 Pulse Ox 95 12/07/16 10:01 Weight - Most Recent: 86 kg I&O - Last 24 Hours: Intake & Output 12/06/16 12/07/16 12/07/16 22:59 06:59 14:59 Intake Total 2704 1144 643 Output Total 375 1050 175 Balance 2329 94 468 Lab Results Last 24 Hours: Laboratory Results - last 24 hr 12/07/16 12/07/16 Range/Units 05:43 05:43 WBC 6.3 (4.5-11.0) K/uL RBC 3.71 L (4.30-5.90) M/uL Hgb 8.4 L (12.0-15.0) g/dL Hct 28.2 L (40.0-54.0) % MCV 76 L (80-98) fL MCH 23 L (27-31) pg MCHC 30 L (32-36) % Plt Count 256 (150-400) K/uL Sodium 143 (140-148) mmol/L Potassium 4.0 (3.6-5.2) mmol/L Chloride 113 H (100-108) mmol/L Carbon Dioxide 24 (21-32) mmol/L Anion Gap 10.0 (5.0-14.0) mmol/L BUN 11 (7-18) mg/dL Creatinine 1.0 (0.8-1.3) mg/dL Est Cr Clr Drug Dosing 65.57 mL/min Estimated GFR (MDRD) > 60 (>60) Glucose 94 (74-106) mg/dL Calcium 7.5 L (8.5-10.1) mg/dL [place] Results Last 24 Hours: Microbiology 12/05/16 14:21 Gram Stain - Final Sputum - Expectorated Respiratory Culture - Preliminary Streptococcus Pneumoniae Med Orders - Current: Current Medications Acetaminophen (Tylenol) 650 mg PO Q4H PRN PRN Reason: Pain (Mild 1-3)/fever Last Admin: 12/06/16 20:55 Dose: 650 mg Albuterol (Proventil Neb Soln) 2.5 mg NEB Q4H PRN PRN Reason: Shortness Of Breath/wheezing Albuterol/Ipratropium (Duoneb 3.0-0.5 Mg/3 Ml) 3 ml NEB QIDRT [facility] Last Admin: 12/07/16 07:17 Dose: 3 ml Benzonatate (Tessalon Perles) 100 mg PO TID PRN PRN Reason: Cough Diphenhydramine HCl (Benadryl) 25 mg PO BEDTIME PRN PRN Reason: Insomnia Last Admin: 12/06/16 20:56 Dose: 25 mg Guaifenesin/Dextromethorphan (Robitussin Dm) 10 ml PO Q4H PRN PRN Reason: Cough Last Admin: 12/07/16 05:46 Dose: 10 ml Hydrocortisone (Cortef) 10 mg PO DAILY [facility] Last Admin: 12/07/16 08:46 Dose: 10 mg Ceftriaxone Sodium 2 gm/ (Sodium Chloride) 50 mls @ 100 mls/hr IV Q24H [facility] Last Admin: 12/07/16 08:45 Dose: 100 mls/hr Azithromycin 500 mg/ Sodium (Chloride) 250 mls @ 250 mls/hr IV Q24H [facility] Last Admin: 12/06/16 10:24 Dose: 250 mls/hr Sodium Chloride (Normal Saline) 1,000 mls @ 50 mls/hr IV ASDIRECTED [facility] Last Admin: 12/06/16 18:03 Dose: 50 mls/hr Ibuprofen (Motrin) 600 mg PO Q6H PRN PRN Reason: Pain/Fever Ondansetron HCl (Zofran Odt) 4 mg PO Q6H PRN PRN Reason: Nausea able to take PO Ondansetron HCl (Zofran) 4 mg IV Q6H PRN PRN Reason: Nausea/Vomiting Polyethylene Glycol (Miralax) 17 gm PO DAILY PRN PRN Reason: Constipation Senna/Docusate Sodium (Senna Plus) 1 tab PO BID PRN PRN Reason: Constipation Sodium Chloride (Saline Flush) 10 ml FLUSH ASDIRECTED PRN PRN Reason: Keep Vein Open Discontinued Medications Azithromycin 500 mg/ Sodium (Chloride) 250 mls @ 250 mls/hr IV Q24H [facility] Last Admin: 12/05/16 12:18 Dose: 250 mls/hr Ceftriaxone Sodium 1 gm/ (Sodium Chloride) 50 mls @ 100 mls/hr IV Q24H [facility] Last Admin: 12/05/16 13:27 Dose: 100 mls/hr Lactated Ringer's (Ringers, Lactated) 1,000 mls @ 500 mls/hr IV ASDIRECTED [facility] Last Admin: 12/05/16 12:19 Dose: 500 mls/hr Sodium Chloride (Normal Saline) 1,000 mls @ 125 mls/hr IV ASDIRECTED [facility] Last Admin: 12/06/16 07:18 Dose: 125 mls/hr Ibuprofen (Motrin) 600 mg PO ONETIME ONE Stop: 12/05/16 11:31 Last Admin: 12/05/16 12:10 Dose: 600 mg - Exam Quality Assessment: No: Supplemental Oxygen General: Alert, Oriented, Cooperative, No Acute Distress Neck: Supple Lungs: Normal Respiratory Effort, Rales (rare right lung base). No: Wheezing Cardiovascular: Regular Rate, Regular Rhythm GI/Abdominal Exam: Soft, No Distention Extremities: No Pedal Edema. No: Increased Warmth Psy/Mental Status: Alert, Normal Affect - Problem List & Annotations (1) Streptococcus pneumoniae pneumonia SNOMED Code(s): 554576915 Code(s): J13 - PNEUMONIA DUE TO STREPTOCOCCUS PNEUMONIAE Status: Acute Current Visit: Yes Qualifiers: Laterality: right Lung location: lower lobe of lung Qualified Code(s): J13 - Pneumonia due to Streptococcus pneumoniae (2) Community acquired pneumonia SNOMED Code(s): 853962986 Code(s): J18.9 - PNEUMONIA, UNSPECIFIED ORGANISM Status: Ruled-out Current Visit: Yes Qualifiers: Laterality: right Lung location: lower lobe of lung Qualified Code(s): J18.1 - Lobar pneumonia, unspecified organism (3) Complicated UTI (urinary tract infection) SNOMED Code(s): 94629226 Code(s): N39.0 - URINARY TRACT INFECTION, SITE NOT SPECIFIED Status: Ruled- out Current Visit: Yes - Problem List Review Problem List Initiated/Reviewed/Updated: Yes - My Orders Last 24 Hours: My Active Orders 12/06/16 09:30 Sodium Chloride 0.9% [Normal Saline] 1,000 ml IV ASDIRECTED 12/06/16 Lunch Regular Diet [DIET] 12/07/16 10:19 Levofloxacin/Dextrose 5%-Water [Levaquin in D5W 750 MG/150 ML] 750 mg Premix Bag 1 bag IV ONETIME 12/07/16 12:00 Convert IV to Saline Lock [OM.PC] Routine 12/08/16 05:00 BASIC METABOLIC PANEL,BMP [CHEM] Timed CBC W/O DIFF,HEMOGRAM [HEME] Timed (1) - Plan Plan:: Assessment and Plan - Community acquired Streptococcus pneumoniae pneumonia - intermittent hypoxia but in general doing better. No fevers. Sputum culture growing Streptococcus pneumoniae but sensitivities are pending. -Continue Ceftriaxone and one-time dose of levofloxacin until sensitivities are available -Follow-up cultures -Supplement oxygen as needed -Nebulizers Possible complicated urinary tract infection - recent TURP with complications. Culture not growing a specific bacteria at this time. -Antibiotics as above -Follow-up urine culture Maintenance issues - - DVT prophylaxis - mechanical - GI prophylaxis - not indicated - Nutrition - regular diet Disposition - anticipate discharge to home after the hospital stay, likely tomorrow if stable overnight Miguel Grissom M.D.
[2016-12-07] MEDS ORDERED: Levofloxacin/Dextrose 5%-Water 750 MG in Premix Bag 1 BAG IV ONE (11:00)
[2016-12-07] MEDS: Sodium Chloride 0.9% 1,000 ML IV SCH (11:24)
[2016-12-07] MEDS: Acetaminophen 325 MG Tab PO PRN (23:31)
[2016-12-08] MEDS: Albuterol/Ipratropium 3.0-0.5 MG/3 ML Neb Soln NEB SCH ×2 (07:15→10:56)
[2016-12-08] MEDS: Hydrocortisone 10 MG Tab PO SCH (09:33)
[2016-12-08] MEDS: cefTRIAXone 2 GM in Sodium Chloride 0.9% 50 ML IV SCH (09:48)
--- NOTE | 2016-12-08 11:19 | PCM.DCSUM1 ---
Discharge Summary - Hospital Course Brief History: 71-year-old male with recent bladder infection due to BPH and obstruction who presented with cough, fever and shortness of breath. He was admitted for management of right lower lobe pneumonia. - Discharge Data Discharge Date: 12/08/16 Discharge Disposition: Home, Self-Care 01 Condition: Good - Discharge Diagnosis/Problem(s) (1) Streptococcus pneumoniae pneumonia SNOMED Code(s): 553024114 ICD Code: J13 - PNEUMONIA DUE TO STREPTOCOCCUS PNEUMONIAE Status: Acute Qualifiers: Laterality: right Lung location: lower lobe of lung Qualified Code(s): J13 - Pneumonia due to Streptococcus pneumoniae (2) Community acquired pneumonia SNOMED Code(s): 116374945 ICD Code: J18.9 - PNEUMONIA, UNSPECIFIED ORGANISM Status: Ruled-out Qualifiers: Laterality: right Lung location: lower lobe of lung Qualified Code(s): J18.1 - Lobar pneumonia, unspecified organism - Patient Summary/Data Hospital Course: Manas presented to the emergency room with cough, shortness of breath and fatigue. Workup in the emergency room suggested a right lower lobe infiltrate as well as mild hypoxia. He was admitted to the hospital for further management. There is also some concern for urinary tract infection based on urinalysis and a urine culture was set up. Over the next 24 hours he was stable to improving. Mild tachycardia at the time of presentation resolved. He was intermittently hypoxic. Clinically he was feeling a little better but still fatigued. He did not have significant fevers following admission. Over the next 24 hours he had additional clinical improvement. Laboratory studies were unremarkable. Still intermittently hypoxic but in general doing well. He was up walking around. Sputum culture returned at this point growing Streptococcus pneumoniae. With his ongoing fatigue and generally did not feel well we elected to keep him one additional day until sensitivities were available. I did discontinue the azithromycin and started levofloxacin to double cover the Streptococcus at this point. On the morning of discharge the sensitivities have returned and the streptococcus is sensitive to levofloxacin as well as cephalosporins. Sputum culture did grow Citrobacter as well area and have elected to use levofloxacin as the monotherapy for both bacteria. He will complete 5 additional days of antibiotic therapy. He should follow-up in a week to make sure he continues to get better. He does have supplemental oxygen at home but has not been needing it on a regular basis. His urine culture did not end up growing a specific bacteria. - Patient Instructions Diet: Heart Healthy Diet Activity: As Tolerated Driving: May Drive Today Showering/Bathing: May Shower Notify Provider of: Fever, Increased Pain, Nausea and/or Vomiting Other/Special Instructions: 1. You were in the hospital for management of pneumonia caused by Streptococcus pneumoniae. You have improved with antibiotic therapy. I do recommend for more doses of levofloxacin 750 mg. He should take one tablet daily about lunchtime each day for the next 4 days. 2. You may resume your usual activities but listen to her body. If you're becoming fatigued or short of breath take a rest. He may have a cough that sticks around for the next several days or possibly a couple of weeks but it should be improving each day. 3. Please seek medical attention if you develop a fever greater than 101, have sudden worsening of your shortness of breath or you develop chest pain/pressure. - Discharge Plan Prescriptions/Med Rec: Levofloxacin 750 mg PO ACLUNCH #4 tablet Home Medications: Home Meds Albuterol Sulfate [Ventolin Hfa] 2 puff IH ASDIRECTED PRN 12/05/16 [History] Hydrocortisone [Cortef] 10 mg PO DAILY 12/05/16 [History] Levofloxacin 750 mg PO ACLUNCH #4 tablet 12/08/16 [Rx] Patient Handouts: Levofloxacin tablets, Community-Acquired Pneumonia, Adult Referrals: Edy Vicente MD [Primary Care Provider] - (1 week - follow-up hospital stay for pneumonia with Streptococcus pneumoniae) - Discharge Summary/Plan Comment DC Time >30 min.: No (25) - Patient Data Vitals - Most Recent: Last Vital Signs Temp 36.2 C 12/08/16 11:13 Pulse 61 12/08/16 11:13 Resp 16 12/08/16 11:13 BP 113/70 12/08/16 11:13 Pulse Ox 97 12/08/16 11:13 Weight - Most Recent: 86 kg I&O - Last 24 hours: Intake & Output 12/07/16 12/08/16 12/08/16 22:59 06:59 14:59 Intake Total 120 1430 Output Total 800 1075 650 Balance -369 -3675 269 Lab Results - Last 24 hrs: Laboratory Results - last 24 hr 12/08/16 12/08/16 Range/Units 05:52 05:52 WBC 5.7 (4.5-11.0) K/uL RBC 4.10 L (4.30-5.90) M/uL Hgb 9.4 L (12.0-15.0) g/dL Hct 30.9 L (40.0-54.0) % MCV 75 L (80-98) fL MCH 23 L (27-31) pg MCHC 30 L (32-36) % Plt Count 298 (150-400) K/uL Sodium 143 (140-148) mmol/L Potassium 4.1 (3.6-5.2) mmol/L Chloride 111 H (100-108) mmol/L Carbon Dioxide 25 (21-32) mmol/L Anion Gap 11.1 (5.0-14.0) mmol/L BUN 8 (7-18) mg/dL Creatinine 1.1 (0.8-1.3) mg/dL Est Cr Clr Drug Dosing 59.61 mL/min Estimated GFR (MDRD) > 60 (>60) Glucose 99 (74-106) mg/dL Calcium 7.9 L (8.5-10.1) mg/dL [facility] Results - Last 24 hrs: Microbiology 12/05/16 14:21 Gram Stain - Final Sputum - Expectorated Respiratory Culture - Final Streptococcus Pneumoniae Citrobacter Koseri Med Orders - Current: Current Medications Acetaminophen (Tylenol) 650 mg PO Q4H PRN PRN Reason: Pain (Mild 1-3)/fever Last Admin: 12/07/16 23:31 Dose: 650 mg Albuterol (Proventil Neb Soln) 2.5 mg NEB Q4H PRN PRN Reason: Shortness Of Breath/wheezing Albuterol/Ipratropium (Duoneb 3.0-0.5 Mg/3 Ml) 3 ml NEB QIDRT [facility] Last Admin: 12/08/16 10:56 Dose: 3 ml Benzonatate (Tessalon Perles) 100 mg PO TID PRN PRN Reason: Cough Diphenhydramine HCl (Benadryl) 25 mg PO BEDTIME PRN PRN Reason: Insomnia Last Admin: 12/06/16 20:56 Dose: 25 mg Guaifenesin/Dextromethorphan (Robitussin Dm) 10 ml PO Q4H PRN PRN Reason: Cough Last Admin: 10/13/17 23:31 Dose: 10 ml Hydrocortisone (Cortef) 10 mg PO DAILY [facility] Last Admin: 12/08/16 09:33 Dose: 10 mg Ceftriaxone Sodium 2 gm/ (Sodium Chloride) 50 mls @ 100 mls/hr IV Q24H [facility] Last Admin: 12/08/16 09:48 Dose: 100 mls/hr Ibuprofen (Motrin) 600 mg PO Q6H PRN PRN Reason: Pain/Fever Levofloxacin (Levaquin) 250 mg PO ONETIME ONE Stop: 12/08/16 11:13 Levofloxacin (Levaquin) 500 mg PO ONETIME ONE Stop: 12/08/16 11:16 Ondansetron HCl (Zofran Odt) 4 mg PO Q6H PRN PRN Reason: Nausea able to take PO Last Admin: 12/07/16 14:33 Dose: 4 mg Ondansetron HCl (Zofran) 4 mg IV Q6H PRN PRN Reason: Nausea/Vomiting Polyethylene Glycol (Miralax) 17 gm PO DAILY PRN PRN Reason: Constipation Senna/Docusate Sodium (Senna Plus) 1 tab PO BID PRN PRN Reason: Constipation Sodium Chloride (Saline Flush) 10 ml FLUSH ASDIRECTED PRN PRN Reason: Keep Vein Open Discontinued Medications Azithromycin 500 mg/ Sodium (Chloride) 250 mls @ 250 mls/hr IV Q24H [facility] Last Admin: 12/05/16 12:18 Dose: 250 mls/hr Ceftriaxone Sodium 1 gm/ (Sodium Chloride) 50 mls @ 100 mls/hr IV Q24H [facility] Last Admin: 12/05/16 13:27 Dose: 100 mls/hr Lactated Ringer's (Ringers, Lactated) 1,000 mls @ 500 mls/hr IV ASDIRECTED [facility] Last Admin: 12/05/16 12:19 Dose: 500 mls/hr Sodium Chloride (Normal Saline) 1,000 mls @ 125 mls/hr IV ASDIRECTED [facility] Last Admin: 12/06/16 07:18 Dose: 125 mls/hr Azithromycin 500 mg/ Sodium (Chloride) 250 mls @ 250 mls/hr IV Q24H [facility] Last Admin: 12/06/16 10:24 Dose: 250 mls/hr Sodium Chloride (Normal Saline) 1,000 mls @ 50 mls/hr IV ASDIRECTED [facility] Stop: 12/07/16 12:00 Last Admin: 12/07/16 11:24 Dose: 50 mls/hr Levofloxacin/Dextrose 750 mg/ (Premix) 150 mls @ 100 mls/hr IV ONETIME ONE Stop: 12/07/16 12:29 Last Admin: 12/07/16 11:14 Dose: 100 mls/hr Ibuprofen (Motrin) 600 mg PO ONETIME ONE Stop: 12/05/16 11:31 Last Admin: 12/05/16 12:10 Dose: 600 mg - Exam Quality Assessment: Denies: Supplemental Oxygen General: Reports: Alert, Oriented, Cooperative, No Acute Distress Lungs: Reports: Normal Respiratory Effort, Rales (Rare right lung base) Cardiovascular: Reports: Regular Rate, Regular Rhythm Psy/Mental Status: Reports: Alert, Normal Affect *Q Meaningful Use (DIS) - VTE *Q VTE Criteria *Q: - Stroke *Q Stroke Criteria *Q: - AMI *Q AMI Criteria *Q:
[2016-12-08] MEDS ORDERED: Levofloxacin 500 MG Tab PO ONE (12:00)
[2016-12-08] MEDS ORDERED: Levofloxacin 250 MG Tab PO ONE (12:00)
== END 2016-12-08 12:35 | disposition home or self-care (01) | DRG 194 ==
LOC: JP.ED 10:46 → JP.MS 14:06
PROVIDERS: ADMIT Internal Medicine; ATTEND Internal Medicine
DX: J13 Pneumonia due to Streptococcus pneumoniae (principal); N39.0 Urinary tract infection, site not specified; R09.02 Hypoxemia; Z66 Do not resuscitate; R50.9 Fever, unspecified; R06.02 Shortness of breath; R05 Cough; Z87.891 Personal history of nicotine dependence; Z87.01 Personal history of pneumonia (recurrent); J44.9 Chronic obstructive pulmonary disease, unspecified
CPT/HCPCS: 36415; 71020 ×2; 80053; 81001; 83605; 83880; 84484; 85025; 86140; 87040 ×2; 87086; 87804 ×2; 93005; 93010; 96365; 96367; 99285; A9270; J0456; J0696; J7050 ×2; J7120; 80048; 85027; 87070; 87077; 87184; 87186; 87205; 94640; 94667; 99284; J1956; J7040; J7620

== ENCOUNTER 2017-05-19 10:00 | Emergency (ER) | payer MEDICARE, BC ==
--- NOTE | 2017-05-19 10:33 | EDM.PDOC ---
ED HPI GENERAL MEDICAL PROBLEM - General Chief Complaint: General Stated Complaint: DIZZY/CONFUSED Time Seen by Provider: 05/19/17 10:28 Source of Information: Reports: Patient, Family, RN Notes Reviewed History Limitations: Reports: No Limitations - History of Present Illness INITIAL COMMENTS - FREE TEXT/NARRATIVE: 71-year-old gentleman presents to the emergency department today complaint of loss of memory with gait instability. States he awoke this morning fine and then there is a period of time about 2 hours where he was very confused does not recall any events family members had to repeat multiple times. Asking the same questions he also was very dizzy and had difficulty walking. At this time he states his memory has resolved he remember some details from this morning but does feel dizzy when he stands up - Related Data Allergies Allergy/AdvReac Type Severity Reaction Status Date / Time Iodinated Contrast- Oral and Allergy Hypotension Verified 12/05/16 11:01 IV Dye codeine AdvReac Abdominal Verified 12/05/16 15:06 Pain morphine AdvReac Abdominal Verified 12/05/16 15:06 Pain Home Meds: Home Meds Hydrocortisone [Cortef] 10 mg PO DAILY 12/05/16 [History] Past Medical History Cardiovascular History: Reports: Heart Failure Respiratory History: Reports: COPD, Pneumonia, Recurrent, Other (See Below) Other Respiratory History: PRN oxygen Gastrointestinal History: Reports: Cholelithiasis, GERD, GI Bleed Genitourinary History: Reports: BPH, Other (See Below) Other Genitourinary History: TURP with complications of puncturing bladder Musculoskeletal History: Reports: Back Pain, Chronic, Fracture, Other (See Below ) Other Musculoskeletal History: L-5 herniated disc Endocrine/Metabolic History: Reports: Other (See Below) Other Endocrine/Metabolic History: prediabetes, diet controlled - Infectious Disease History Infectious Disease History: Reports: RNZ-Nnpvftczuo-Cuzanooip Enterobacteriaceae , Mumps - Past Surgical History HEENT Surgical History: Reports: Eye Surgery, LASIK GI Surgical History: Reports: Appendectomy, Cholecystectomy, Hernia, Inguinal, Other (See Below) Other GI Surgeries/Procedures: partial stomach removal due to gi bleed Male Surgical History: Reports: TURP-Transurethral Resection of Prostate 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 Musculoskeletal Surgical History: Reports: Other (See Below) Other Musculoskeletal Surgeries/Procedures:: Left arm surgery for nerve damage prakash 5 Social & Family History - Family History HEENT: Reports: Cataract Other HEENT Family History: both mom and dad Cardiac: Reports: Heart Failure Other Cardiac Family History: dad GI: Reports: GI bleed, Other (See Below) Other GI Family History: mother, gastrectomy : Reports: Renal Calculus Neurological: Reports: None Oncologic: Reports: Skin - Tobacco Use Smoking Status *Q: Never Smoker Years of Tobacco use: 50 Used Tobacco, but Quit: Yes Month/Year Tobacco Last Used: 8.5 years ago Second Hand Smoke Exposure: No - Caffeine Use Caffeine Use: Reports: Coffee, Soda Other Caffeine Use: 4 cups of coffee per day - Alcohol Use Days Per Week of Alcohol Use: 0 - Recreational Drug Use Recreational Drug Use: No ED ROS GENERAL - Review of Systems Review Of Systems: See Below Constitutional: Reports: No Symptoms HEENT: Reports: No Symptoms Respiratory: Reports: No Symptoms Cardiovascular: Reports: Lightheadedness GI/Abdominal: Reports: No Symptoms : Reports: No Symptoms Musculoskeletal: Reports: No Symptoms Skin: Reports: No Symptoms Neurological: Reports: Confusion, Dizziness ED EXAM, GENERAL - Physical Exam Exam: See Below Free Text/Narrative:: General: Male, not in any distress, alert and oriented x3 HEENT: head is atraumatic normocephalic, eyes pupils equal round reactive to light, sclera clear no conjunctivitis appreciated extraocular eye movements intact. Ears tympanic membranes clear and hutson landmarks and light reflex are present bilaterally canals are clear. Nose no septal deviation, nares are clear, no blood present. Mouth mucosa is moist and pink no erythema or exudate noted in soft palate, tongue is midline uvula is midline, dentition is intact. Neck: Supple no thyromegaly no tracheal deviation. Nodes: Cervical nodes subclavicular nodes nontender no palpable lymphadenopathy noted. Lungs: clear to auscultation bilaterally with symmetrical respirations, no adventitious noise appreciated. CV: Regular rate and rhythm S1 and S2 appreciated no murmurs rubs or gallops noted. Abdomen: Soft, nontender, no palpable masses or organomegaly appreciated, no distention no guarding bowel sounds are present, Neuro: Cranial nerves II through XII grossly intact, power is 5 out 5 in upper and lower extremities, can do finger to nose without difficulty no dysdiadochokinesis no difficulty with rapid alternating movements can do heel-to -griffith without difficulty Romberg is negative, has has difficulty ambulating and is unsteady Skin: Warm and dry, intact Extremities: No lower extremity edema appreciated, Course - Vital Signs Last Recorded V/S: Last Vital Signs Temp 96.4 F 05/19/17 10:12 Pulse 57 L 05/19/17 11:38 Resp 12 05/19/17 11:38 BP 124/77 05/19/17 11:38 Pulse Ox 97 05/19/17 11:38 - Orders/Labs/Meds Orders: Active Orders 24 hr Category Date Time Status EKG Documentation Completion [RC] ASDIRECTED Care 05/19/17 10:30 Active Head wo Cont [CT] Urgent Exams 05/19/17 10:29 Taken EKG 12 Lead [EK] Urgent Ther 05/19/17 10:29 Ordered Labs: Laboratory Tests 05/19/17 05/19/17 05/19/17 Range/Units 10:29 10:29 10:29 WBC 6.3 (4.5-11.0) K/uL RBC 5.97 H (4.30-5.90) M/uL Hgb 11.3 L (12.0-15.0) g/dL Hct 37.5 L (40.0-54.0) % MCV 63 L (80-98) fL MCH 19 L (27-31) pg MCHC 30 L (32-36) % Plt Count 338 (150-400) K/uL Neut % (Auto) 59 (36-66) % Lymph % (Auto) 27 (24-44) % [place] % (Auto) 12 H (2-6) % Eos % (Auto) 1 L (2-4) % Baso % (Auto) 1 (0-1) % Sodium 142 (140-148) mmol/L Potassium 4.7 (3.6-5.2) mmol/L Chloride 108 (100-108) mmol/L Carbon Dioxide 27 (21-32) mmol/L Anion Gap 7.4 (5.0-14.0) mmol/L BUN 21 H D (7-18) mg/dL Creatinine 1.1 (0.8-1.3) mg/dL Est Cr Clr Drug Dosing TNP Estimated GFR (MDRD) > 60 (>60) Glucose 103 (74-106) mg/dL Lactic Acid 1.2 (0.4-2.0) mmol/L Calcium 8.7 (8.5-10.1) mg/dL Total Bilirubin 0.5 (0.2-1.0) mg/dL AST 21 (15-37) U/L ALT 22 (12-78) U/L Alkaline Phosphatase 72 (46-116) U/L Troponin I < 0.017 (0.000-0.056) ng/mL Total Protein 6.8 (6.4-8.2) g/dL Albumin 3.5 (3.4-5.0) g/dL Globulin 3.3 (2.3-3.5) g/dL Albumin/Globulin Ratio 1.1 L (1.2-2.2) Urine Color Urine Appearance Urine pH (4.5-8.0) Ur Specific [place] (1.008-1.030) Urine Protein (NEGATIVE) mg/dL Urine Glucose (UA) (NEGATIVE) mg/dL Urine Ketones (NEGATIVE) mg/dL Urine Occult Blood (NEGATIVE) Urine Nitrite (NEGAITVE) Urine Bilirubin (NEGATIVE) Urine Urobilinogen (NORMAL) mg/dL Ur Leukocyte Esterase (NEGATIVE) Urine RBC (0-5) Urine WBC (0-5) Ur Epithelial Cells Amorphous Sediment Urine Bacteria Urine Mucus 05/19/17 Range/Units 11:30 WBC (4.5-11.0) K/uL RBC (4.30-5.90) M/uL Hgb (12.0-15.0) g/dL Hct (40.0-54.0) % MCV (80-98) fL MCH (27-31) pg MCHC (32-36) % Plt Count (150-400) K/uL Neut % (Auto) (36-66) % Lymph % (Auto) (24-44) % [place] % (Auto) (2-6) % Eos % (Auto) (2-4) % Baso % (Auto) (0-1) % Sodium (140-148) mmol/L Potassium (3.6-5.2) mmol/L Chloride (100-108) mmol/L Carbon Dioxide (21-32) mmol/L Anion Gap (5.0-14.0) mmol/L BUN (7-18) mg/dL Creatinine (0.8-1.3) mg/dL Est Cr Clr Drug Dosing Estimated GFR (MDRD) (>60) Glucose (74-106) mg/dL Lactic Acid (0.4-2.0) mmol/L Calcium (8.5-10.1) mg/dL Total Bilirubin (0.2-1.0) mg/dL AST (15-37) U/L ALT (12-78) U/L Alkaline Phosphatase (46-116) U/L Troponin I (0.000-0.056) ng/mL Total Protein (6.4-8.2) g/dL Albumin (3.4-5.0) g/dL Globulin (2.3-3.5) g/dL Albumin/Globulin Ratio (1.2-2.2) Urine Color Yellow Urine Appearance Slightly cloudy Urine pH 7.0 (4.5-8.0) Ur Specific [place] 1.015 (1.008-1.030) Urine Protein Negative (NEGATIVE) mg/dL Urine Glucose (UA) Normal (NEGATIVE) mg/dL Urine Ketones Negative (NEGATIVE) mg/dL Urine Occult Blood Negative (NEGATIVE) Urine Nitrite Negative (NEGAITVE) Urine Bilirubin Negative (NEGATIVE) Urine Urobilinogen Normal (NORMAL) mg/dL Ur Leukocyte Esterase Negative (NEGATIVE) Urine RBC Not seen (0-5) Urine WBC Not seen (0-5) Ur Epithelial Cells Rare Amorphous Sediment Rare Urine Bacteria Not seen Urine Mucus Rare Departure - Departure Time of Disposition: 12:06 Disposition: Home, Self-Care 01 Condition: Fair Clinical Impression: Transient global amnesia - Discharge Information Referrals: Edy Vicente MD [Primary Care Provider] - Forms: ED Department Discharge Additional Instructions: Resume your regular medications, Please followup with your primary care provider in 3-5 days if not better, please call return to the emergency department with worsening of symptoms. - My Orders Last 24 Hours: My Active Orders 05/19/17 10:29 Head wo Cont [CT] Urgent EKG 12 Lead [EK] Urgent 05/19/17 10:30 EKG Documentation Completion [RC] ASDIRECTED - Assessment/Plan Last 24 Hours: My Active Orders 05/19/17 10:29 Head wo Cont [CT] Urgent EKG 12 Lead [EK] Urgent 05/19/17 10:30 EKG Documentation Completion [RC] ASDIRECTED Plan: Assessment Acuity = acute Site and laterality = transient global amnesia Etiology = unclear etiology Manifestations = dizziness now improving Location of injury = Home Lab values = hemoglobin low 11.3 consistent with microcytic anemia, sclera remainder CBC, CMP, troponin unremarkable EKG shows no acute process, CT scan of the head shows no acute process Plan I did review lab work EKG, CAT scan results with him he feels back to his normal baseline at this time plan is to discharge home follow-up with primary care 3-5 days for reevaluation he will return to the emergency department with development of new symptoms This note was dictated using [employer] voice recognition software please call with any questions on syntax or michael.
== END 2017-05-19 12:30 | disposition home or self-care (01) ==
LOC: JP.ED 10:00
DX: G45.4 Transient global amnesia (principal); I50.9 Heart failure, unspecified; J44.9 Chronic obstructive pulmonary disease, unspecified; R73.03 Prediabetes; Z88.8 Allergy status to other drugs, medicaments and biological substances; Z88.5 Allergy status to narcotic agent; Z79.52 Long term (current) use of systemic steroids; Z87.01 Personal history of pneumonia (recurrent)
CPT/HCPCS: 36415; 70450; 80053; 81001; 83605; 84484; 85025; 93005; 99284; 99285-25

== ENCOUNTER 2020-01-16 08:55 | Emergency (ER) | payer OTHER, MEDICARE ==
[2020-01-16] MEDS ORDERED: Loperamide 2 MG Cap PO ONE (10:15)
[2020-01-16] MEDS ORDERED: Acetaminophen 500 MG Tab PO ONE (10:15)
--- NOTE | 2020-01-16 10:56 | EDM.PDOC ---
ED HPI GENERAL MEDICAL PROBLEM - General Chief Complaint: General Stated Complaint: cough, diarrhea, Covid exposure Time Seen by Provider: 01/16/20 09:15 Source of Information: Reports: Patient, RN History Limitations: Reports: No Limitations - History of Present Illness INITIAL COMMENTS - FREE TEXT/NARRATIVE: See Hand written note. Onset Date: 01/15/20 Duration: Day(s): (1) Location: Reports: Generalized Severity: Moderate Improves with: Reports: Medication Worsens with: Denies: Medication Context: Reports: Other ( with Covid) Associated Symptoms: Reports: Cough, Fever/Chills (low grade), Shortness of Breath (minimal) Treatments POLICY INTERN: Reports: Other (see below) (Tylenol last about 6 hrs ago) - Related Data Allergies Allergy/AdvReac Type Severity Reaction Status Date / Time Iodinated Contrast Media Allergy Hypotension Verified 01/16/20 10:32 [Iodinated Contrast- Oral and IV Dye] codeine AdvReac Abdominal Verified 01/16/20 10:32 Pain morphine AdvReac Abdominal Verified 01/16/20 10:32 Pain Home Meds: Home Meds Omeprazole 40 mg PO ACBREAKFAST 01/16/20 [History] Past Medical History Cardiovascular History: Reports: Heart Failure Respiratory History: Reports: COPD, Pneumonia, Recurrent, Other (See Below) Other Respiratory History: PRN oxygen Gastrointestinal History: Reports: Cholelithiasis, GERD, GI Bleed Genitourinary History: Reports: BPH, Other (See Below) Other Genitourinary History: TURP with complications of puncturing bladder Musculoskeletal History: Reports: Back Pain, Chronic, Fracture, Other (See Below) Other Musculoskeletal History: L-5 herniated disc Endocrine/Metabolic History: Reports: Other (See Below) Other Endocrine/Metabolic History: prediabetes, diet controlled - Infectious Disease History Infectious Disease History: Reports: AAX-Lmexocybag-Cmmvrrbbk Enterobacteriaceae, Mumps - Past Surgical History HEENT Surgical History: Reports: Eye Surgery, LASIK GI Surgical History: Reports: Appendectomy, Cholecystectomy, Hernia, Inguinal, Other (See Below) Other GI Surgeries/Procedures: partial stomach removal due to gi bleed Male Surgical History: Reports: TURP-Transurethral Resection of Prostate 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 Musculoskeletal Surgical History: Reports: Other (See Below) Other Musculoskeletal Surgeries/Procedures:: Left arm surgery for nerve damage prakash 5 Social & Family History - Family History HEENT: Reports: Cataract Other HEENT Family History: both mom and dad Cardiac: Reports: Heart Failure Other Cardiac Family History: dad GI: Reports: GI bleed, Other (See Below) Other GI Family History: mother, gastrectomy : Reports: Renal Calculus Neurological: Reports: None Oncologic: Reports: Skin - Caffeine Use Caffeine Use: Reports: Coffee, Soda Other Caffeine Use: 4 cups of coffee per day ED ROS GENERAL - Review of Systems Review Of Systems: See Below Constitutional: Reports: Fever, Malaise HEENT: Reports: No Symptoms Respiratory: Reports: Shortness of Breath, Cough. Denies: Wheezing, Pleuritic Chest Pain, Sputum, Hemoptysis Cardiovascular: Reports: No Symptoms GI/Abdominal: Reports: Diarrhea. Denies: Abdominal Pain, Nausea : Reports: No Symptoms Musculoskeletal: Reports: No Symptoms Skin: Reports: No Symptoms Neurological: Reports: No Symptoms ED EXAM, GENERAL - Physical Exam Exam: See Below Exam Limited By: No Limitations General Appearance: Alert, WD/WN, No Apparent Distress Eye Exam: Bilateral Eye: Normal Inspection Ears: Normal External Exam, Normal Canal, Hearing Grossly Normal, Normal TMs Ear Exam: Bilateral Ear: Auricle Normal, Canal Normal, TM normal Nose: Normal Inspection, No Blood Throat/Mouth: Normal Inspection, Normal Lips, Normal Oropharynx, Normal Voice, No Airway Compromise Head: Atraumatic, Normocephalic Neck: Normal Inspection Respiratory/Chest: No Respiratory Distress, Lungs Clear, Normal Breath Sounds, No Accessory Muscle Use Cardiovascular: Regular Rate, Rhythm, No Edema Back Exam: Normal Inspection. No: CVA Tenderness (R), CVA Tenderness (L) Extremities: Normal Inspection, Normal Range of Motion, Non-Tender, No Pedal Edema. No: Pedal Edema Neurological: Alert, Oriented, CN II-XII Intact, Normal Cognition, No Motor/Sensory Deficits Psychiatric: Normal Affect, Normal Mood Skin Exam: Warm, Dry, Intact, Normal Color, No Rash Course - Vital Signs Last Recorded V/S: Last Vital Signs Temp 36.9 C 01/16/20 10:33 Pulse 72 01/16/20 10:33 Resp 16 01/16/20 10:33 BP 127/80 01/16/20 10:33 Pulse Ox 98 01/16/20 10:33 - Orders/Labs/Meds Orders: Active Orders 24 hr Category Date Time Status CORONAVIRUS COVID-19, PEGGY Routine Lab 01/16/20 10:39 Received Labs: Laboratory Tests 01/16/20 01/16/20 Range/Units 10:39 10:39 WBC 5.1 (4.5-11.0) K/uL RBC 5.80 (4.30-5.90) M/uL Hgb 16.2 H D (12.0-15.0) g/dL Hct 50.2 (40.0-54.0) % MCV 87 (80-98) fL MCH 28 (27-31) pg MCHC 32 (32-36) % Plt Count 173 (150-400) K/uL Sodium 141 (140-148) mmol/L Potassium 4.1 (3.6-5.2) mmol/L Chloride 104 (100-108) mmol/L Carbon Dioxide 28 (21-32) mmol/L Anion Gap 8.9 (5.0-14.0) mmol/L BUN 17 (7-18) mg/dL Creatinine 1.2 (0.8-1.3) mg/dL Est Cr Clr Drug Dosing 52.37 mL/min Estimated GFR (MDRD) 59 L (>60) Glucose 93 (74-106) mg/dL Calcium 8.6 (8.5-10.1) mg/dL Meds: Medications Discontinued Medications Generic Name Dose Route Start Last Admin Trade Name Freq PRN Reason Stop Dose Admin Acetaminophen 1,000 mg 01/16/20 10:15 Tylenol Extra Strength PO 01/16/20 10:16 ONETIME ONE Loperamide HCl 4 mg 01/16/20 10:15 Imodium PO 01/16/20 10:16 ONETIME ONE Departure - Departure Time of Disposition: 10:54 Disposition: Home, Self-Care 01 Condition: Fair Clinical Impression: Viral respiratory illness - Discharge Information *PRESCRIPTION DRUG MONITORING PROGRAM REVIEWED*: No *COPY OF PRESCRIPTION DRUG MONITORING REPORT IN PATIENT MAE: No Referrals: PCP,None [Primary Care Provider] - Forms: ED Department Discharge Additional Instructions: Acetaminophen and/or ibuprofen for pain or fever control. Hydrate to keep urine light yellow in color. Loperamide for diarrhea. Isolate to limit spread. Recheck with your doctor if anything changes. Sepsis Event Note (ED) - Focused Exam Vital Signs: Vital Signs Temp Pulse Resp BP Pulse Ox 01/16/20 10:33 36.9 C 72 16 127/80 98 - My Orders Last 24 Hours: My Active Orders 01/16/20 10:39 CORONAVIRUS COVID-19, PEGGY Routine - Assessment/Plan Last 24 Hours: My Active Orders 01/16/20 10:39 CORONAVIRUS COVID-19, PEGGY Routine
== END 2020-01-16 11:13 | disposition home or self-care (01) ==
LOC: JP.ED 08:55
DX: U07.1 COVID-19 (principal); J44.9 Chronic obstructive pulmonary disease, unspecified; K21.9 Gastro-esophageal reflux disease without esophagitis; Z91.041 Radiographic dye allergy status; Z88.5 Allergy status to narcotic agent; Z79.899 Other long term (current) drug therapy
CPT/HCPCS: 36415; 80048; 85027; 99283; U0002

== ENCOUNTER 2020-01-26 19:45 | Emergency (ER) | payer OTHER, MEDICARE ==
--- NOTE | 2020-01-26 20:30 | EDM.PDOC ---
ED HPI GENERAL MEDICAL PROBLEM - General Chief Complaint: Respiratory Problem Stated Complaint: COVID POSITIVE, HAVING BREATHING ISSUES Time Seen by Provider: 01/26/20 20:20 Source of Information: Reports: Patient History Limitations: Reports: No Limitations - History of Present Illness INITIAL COMMENTS - FREE TEXT/NARRATIVE: 74-year-old male who was tested for Covid 11 days ago, found out he was positive 4 days ago has been weak and short of breath for the past 2 weeks. He does have COPD, uses his nebulizer fairly often but today he coughed so hard that he had some light pink sputum. He feels weak, tired, and gets winded easily with activity. When he saw the pink sputum he decided to get checked out. He has not had any work-up, x-ray, treatment or further evaluation of his Covid to this point. He also has some mild to moderate diarrhea. His was also ill but is better. Onset: Gradual Duration: Week(s): (2 weeks) Associated Symptoms: Reports: Cough, Fever/Chills, Shortness of Breath, Weakness, Other (Mild hemoptysis). Denies: Chest Pain, Nausea/Vomiting lungs Pain Score (Numeric/FACES): 2 - Related Data Allergies Allergy/AdvReac Type Severity Reaction Status Date / Time azithromycin Allergy Swelling Verified 01/26/20 22:01 [From Zithromax Z-Jaylan] Iodinated Contrast Media Allergy Hypotension Verified 01/26/20 19:59 [Iodinated Contrast- Oral and IV Dye] codeine AdvReac Abdominal Verified 01/26/20 19:59 Pain morphine AdvReac Abdominal Verified 01/26/20 19:59 Pain Home Meds: Home Meds Omeprazole 40 mg PO ACBREAKFAST 01/16/20 [History] Past Medical History Cardiovascular History: Reports: Heart Failure Respiratory History: Reports: COPD, Pneumonia, Recurrent, Other (See Below) Other Respiratory History: PRN oxygen Gastrointestinal History: Reports: Cholelithiasis, GERD, GI Bleed Genitourinary History: Reports: BPH, Other (See Below) Other Genitourinary History: TURP with complications of puncturing bladder Musculoskeletal History: Reports: Back Pain, Chronic, Fracture, Other (See Below) Other Musculoskeletal History: L-5 herniated disc Endocrine/Metabolic History: Reports: Other (See Below) Other Endocrine/Metabolic History: prediabetes, diet controlled - Infectious Disease History Infectious Disease History: Reports: BKE-Dnoofcersr-Auzoxpzcy Enterobacteriaceae, Mumps, Novel Coronavirus - Past Surgical History HEENT Surgical History: Reports: Eye Surgery, LASIK GI Surgical History: Reports: Appendectomy, Cholecystectomy, Hernia, Inguinal, Other (See Below) Other GI Surgeries/Procedures: partial stomach removal due to gi bleed Male Surgical History: Reports: TURP-Transurethral Resection of Prostate 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 Musculoskeletal Surgical History: Reports: Other (See Below) Other Musculoskeletal Surgeries/Procedures:: Left arm surgery for nerve damage prakash 5 Social & Family History - Family History HEENT: Reports: Cataract Other HEENT Family History: both mom and dad Cardiac: Reports: Heart Failure Other Cardiac Family History: dad GI: Reports: GI bleed, Other (See Below) Other GI Family History: mother, gastrectomy : Reports: Renal Calculus Neurological: Reports: None Oncologic: Reports: Skin - Tobacco Use Tobacco Use Status *Q: Never Tobacco User - Caffeine Use Caffeine Use: Reports: Coffee Other Caffeine Use: 4 cups of coffee per day - Recreational Drug Use Recreational Drug Use: No ED ROS GENERAL - Review of Systems Review Of Systems: See Below Constitutional: Reports: Fever, Chills, Malaise HEENT: Denies: Throat Pain Respiratory: Reports: Shortness of Breath, Cough, Sputum, Hemoptysis Cardiovascular: Denies: Palpitations GI/Abdominal: Reports: Diarrhea. Denies: Abdominal Pain, Nausea, Vomiting Musculoskeletal: Reports: No Symptoms Skin: Reports: No Symptoms Neurological: Reports: Weakness. Denies: Headache Psychiatric: Reports: No Symptoms ED EXAM, GENERAL - Physical Exam Exam: See Below Exam Limited By: No Limitations General Appearance: Alert, No Apparent Distress (Looks tired and somewhat ill but not in distress) Head: Atraumatic Respiratory/Chest: No Respiratory Distress, Rhonchi (Perihilar rhonchi and mild decreased breath sounds on the right, the rhonchi markedly improved after coughing), Other (O2 sats are ranging from 92 to 97% on room air) Cardiovascular: Regular Rate, Rhythm. No: Tachycardia GI/Abdominal: Soft, Non-Tender Extremities: Normal Inspection. No: No Pedal Edema Neurological: Alert, Oriented Psychiatric: Normal Affect, Normal Mood Skin Exam: Warm, Dry Course - Vital Signs Last Recorded V/S: Last Vital Signs Temp 98.3 F 01/26/20 20:47 Pulse 69 01/26/20 20:47 Resp 18 01/26/20 20:02 BP 108/81 01/26/20 20:47 Pulse Ox 91 L 01/26/20 20:47 - Orders/Labs/Meds Labs: Laboratory Tests 01/26/20 01/26/20 01/26/20 Range/Units 20:39 20:49 20:49 WBC 3.8 L (4.5-11.0) K/uL RBC 5.89 (4.30-5.90) M/uL Hgb 16.3 H (12.0-15.0) g/dL Hct 49.7 (40.0-54.0) % MCV 84 (80-98) fL MCH 28 (27-31) pg MCHC 33 (32-36) % Plt Count 150 (150-400) K/uL Neut % (Auto) 59 (36-66) % Lymph % (Auto) 29 (24-44) % [place] % (Auto) 12 H (2-6) % Eos % (Auto) 0 L (2-4) % Baso % (Auto) 0 (0-1) % D-Dimer, Quantitative 520.73 H (0.0-500.0) ng/mL Sodium 138 L (140-148) mmol/L Potassium 4.1 (3.6-5.2) mmol/L Chloride 103 (100-108) mmol/L Carbon Dioxide 24 (21-32) mmol/L Anion Gap 15.1 H (5.0-14.0) mmol/L BUN 22 H (7-18) mg/dL Creatinine 1.1 (0.8-1.3) mg/dL Est Cr Clr Drug Dosing 57.13 mL/min Estimated GFR (MDRD) > 60 (>60) Glucose 122 H (74-106) mg/dL Calcium 8.0 L (8.5-10.1) mg/dL Ferritin 201 (8-388) ng/ml Total Bilirubin 0.4 (0.2-1.0) mg/dL AST 59 H D (15-37) U/L ALT 66 D (12-78) U/L Alkaline Phosphatase 70 (46-116) U/L Total Protein 6.2 L (6.4-8.2) g/dL Albumin 3.0 L (3.4-5.0) g/dL Globulin 3.2 (2.3-3.5) g/dL Albumin/Globulin Ratio 0.9 L (1.2-2.2) - Re-Assessments/Exams Free Text/Narrative Re-Assessment/Exam: 01/26/20 20:35 A 2 view chest x-ray will be obtained, as well as a CBC, CMP, ferritin and D- dimer. 01/26/20 21:42 2 view chest x-ray showed COPD changes but no infiltrate. White count was 3800, ferritin normal, D-dimer just mildly elevated at 500. He remained stable and fairly comfortable. He will be placed on a course of Zithromax, and encouraged to recheck if worsening. 01/26/20 22:01 As the patient was being discharged, he had some memory that he reacted to Zithromax in the past so this was changed to doxycycline. Departure - Departure Time of Disposition: 21:53 Disposition: Home, Self-Care 01 Clinical Impression: COVID-19 virus infection, Bronchitis - Discharge Information Instructions: Acute Bronchitis, Adult, [id number] Referrals: PCP,None [Primary Care Provider] - Forms: ED Department Discharge Care Plan Goals: Take antibiotic for 10 days as directed, continue with rest and fluids and nebulizers as needed. Return anytime if worsening despite treatment. Sepsis Event Note (ED) - Evaluation Sepsis Screening Result: No Definite Risk - Focused Exam Vital Signs: Vital Signs Temp Pulse Resp BP Pulse Ox 01/26/20 20:47 98.3 F 69 108/81 91 L 01/26/20 20:02 98.8 F 72 18 129/76 92 L 01/26/20 19:59 98.8 F 72 18 129/76 92 L
--- NOTE | 2020-01-26 21:04 | CRLCR ---
INDICATION: Dyspnea. TECHNIQUE: Chest 2 views COMPARISON: December 05, 2016. FINDINGS: Cardiovascular and mediastinum: Heart size and vasculature are normal in caliber and appearance. Lungs and pleural spaces: Lungs are clear except for mild bibasilar scarring. No effusions and no pneumothorax. Bones and soft tissues: No significant findings. IMPRESSION: No acute findings and no significant changes from the prior exam. Dictated by Jagdish Zamarripa MD @ 01/26/2020 9:02:25 PM Dictated by: Jagdish Zamarripa MD @ 01/26/2020 21:02:33 (Electronically Signed)
== END 2020-01-26 22:07 | disposition home or self-care (01) ==
LOC: JP.ED 19:45
DX: U07.1 COVID-19 (principal); J40 Bronchitis, not specified as acute or chronic; I50.9 Heart failure, unspecified; J44.9 Chronic obstructive pulmonary disease, unspecified; K21.9 Gastro-esophageal reflux disease without esophagitis; Z88.1 Allergy status to other antibiotic agents; Z91.041 Radiographic dye allergy status; Z88.5 Allergy status to narcotic agent
CPT/HCPCS: 36415; 71046; 80053; 82728; 85025; 85379; 99285-25

== ENCOUNTER 2020-03-08 06:37 | Day surgery (SDC) | payer MEDICARE, OTHER ==
[2020-03-08] MEDS ORDERED: Sodium Chloride 0.9% 1,000 ML IV SCH (07:00)
[2020-03-08] MEDS ORDERED: Propofol 200 MG/20 ML SDV ONE (07:24)
[2020-03-08] MEDS ORDERED: fentaNYL 100 MCG/2 ML SDV ONE (07:24)
[2020-03-08] MEDS ORDERED: Midazolam 1 MG/ML 2 ML SDV ONE (07:24)
--- NOTE | 2020-03-08 12:40 | OR ---
DATE OF PROCEDURE: 03/08/2020 SURGEON: Romero Morton MD PROCEDURE: Colonoscopy. FINDINGS: 1. A 5 mm ascending colon polyp, completely removed using cold biopsy forceps. 2. Diverticulosis without evidence of diverticulitis or bleeding, mostly concentrated in sigmoid colon. COMPLICATIONS: None. [employer]: None. ANESTHESIA: MAC. PREOPERATIVE DIAGNOSIS: Screening colonoscopy. POSTOPERATIVE DIAGNOSIS: Screening colonoscopy. RISKS: Risks, benefits, alternatives, and limitations including, but not limited to infection, bleeding, and perforation along with false positives and false negatives were explained to the patient who wished to proceed. PROCEDURE IN DETAIL: The patient was placed in left lateral decubitus position. Digital rectal exam was performed without abnormalities. Scope was introduced and advanced atraumatically to the ileocecal valve. Scope was brought back to the ascending, transverse, descending colon, and retroflexed. No evidence of old or new blood. No colitis. The patient did have diverticulosis that was described as moderate, mostly concentrated in sigmoid colon. The aforementioned polyp was identified and completely removed. This appeared benign. No abnormalities on retroflexion. Romero Morton MD /[id number]
== END 2020-03-08 09:58 | disposition home or self-care (01) ==
LOC: JP.SDS 06:37
PROVIDERS: ATTEND Surgery
DX: Z12.11 Encounter for screening for malignant neoplasm of colon (principal); D12.2 Benign neoplasm of ascending colon; K57.30 Diverticulosis of large intestine without perforation or abscess without bleeding; J44.9 Chronic obstructive pulmonary disease, unspecified; I50.9 Heart failure, unspecified; E11.9 Type 2 diabetes mellitus without complications
CPT/HCPCS: 45380; J2250; J2704; J3010; J7030

== ENCOUNTER 2022-11-05 13:54 | Emergency (ER) | payer OTHER, MEDICARE ==
[2022-11-05] MEDS ORDERED: Pantoprazole 40 MG Tab.CR PO SCH (14:45)
[2022-11-05 14:49] LABS: BASOPHILS ABSOLUTE AUTO 0.06 K/uL (0.00-0.10); BASOPHILS PERCENT AUTO 1.2 % (0.1-1.3); EOSINOPHILS ABSOLUTE AUTO 0.04 K/uL (0.00-0.40); EOSINOPHILS PERCENT AUTO 0.8 % (0.0-5.4); HEMATOCRIT 49.2 % (38.4-49.7); HEMOGLOBIN 16.2 g/dL (12.9-16.9); IMMATURE GRAN PERCENT AUTO 0.2 % (0.0-0.7); LYMPHOCYTES ABSOLUTE AUTO 2.04 K/uL (0.8-3.3); MEAN CORPUSCULAR HEMOGLOBIN 27.7 pg (31.6-35.5); MEAN CORPUSCULAR HGB CONC 32.9 g/dL (31.6-35.5); MEAN CORPUSCULAR VOLUME 84.1 fL (81.4-99.0); MONOCYTES ABSOLUTE AUTO 0.51 K/uL (0.20-0.90); NEUTROPHILS ABSOLUTE AUTO 2.44 K/uL (1.0-7.6); NEUTROPHILS PERCENT AUTO 47.8 % (40.0-78.1); PLATELET COUNT,PLT 189 K/uL (130-375); RED BLOOD CELL COUNT 5.85 M/uL (4.14-5.76); WHITE BLOOD CELL COUNT,WBC 5.1 K/uL (3.2-11.0)
[2022-11-05 14:58] LABS: IMMATURE GRAN ABSOLUTE AUTO 0.01 K/uL (0.00-0.23)
[2022-11-05 15:09] LABS: A/G RATIO 1.1 (1.2-2.2); ALANINE AMINOTRANSFERASE,ALT 32 U/L (12-78); ALBUMIN 3.7 g/dL (3.4-5.0); ALKALINE PHOSPHATASE 66 U/L (46-116); ANION GAP 8.3 mmol/L (5.0-14.0); ASPARTATE AMNIOTRANSFERASE,AST 25 U/L (15-37); BILIRUBIN TOTAL 0.5 mg/dL (0.2-1.0); BLOOD UREA NITROGEN,BUN 22 mg/dL (7-18); CALCIUM 8.9 mg/dL (8.5-10.1); CARBON DIOXIDE,CO2 28 mmol/L (21-32); CHLORIDE,CL 105 mmol/L (100-108); CREATININE 1.2 mg/dL (0.8-1.3); EST CRCL DRUG DOSING (CG) 49.92 mL/min; ESTIMATED GFR 62 mL/min (>60); GLUCOSE RANDOM 104 mg/dL (74-106); POTASSIUM,K 4.7 mmol/L (3.6-5.2); PROTEIN TOTAL,TP 7.1 g/dL (6.4-8.2); SODIUM,NA 141 mmol/L (140-148)
== END 2022-11-05 15:29 | disposition home or self-care (01) ==
LOC: JP.ED 13:54
DX: K29.00 Acute gastritis without bleeding (principal); J44.9 Chronic obstructive pulmonary disease, unspecified; K21.9 Gastro-esophageal reflux disease without esophagitis; Z79.899 Other long term (current) drug therapy; Z88.1 Allergy status to other antibiotic agents; Z91.041 Radiographic dye allergy status; Z88.5 Allergy status to narcotic agent
CPT/HCPCS: 36415; 80053; 83690; 84484; 85025; 93005; 99285; A9270; 93010; 99283